=== PATIENT | male | born 1950 | race Caucasian/White ===

== ENCOUNTER 2017-03-01 18:25 | Emergency (ER) | payer MEDICARE, OTHER ==
--- NOTE | 2017-03-01 19:26 | ERNOTE ---
Lower Extremity HPI - Narrative Date of Service: 03/01/17 - General Lower Extremities Pain: knee: right Time Seen by Provider: 03/01/17 18:30 Source: patient, family - patint bumped fajardo on hard object and developed hematoma on fajardo - Immun/Allergies/Home Medications Immunizations: IMMUNIZATION HX Immunizations Up to Date Yes History of Influenza Vaccine No Hx Pneumococcal Vaccination No Allergies/Adverse Reactions: Allergies Allergy/AdvReac Type Severity Reaction Status Date / Time No Known Allergies Allergy Unverified 03/01/17 18:28 Home Medications: HOME MEDICATIONS Aspirin [Aspirin EC] 81 mg PO DAILY 03/01/17 [Last Taken Unknown] Bimatoprost [Lumigan 0.01% Opth Solution] 1 ml OP DAILY 03/01/17 [Last Taken Unknown] Tamsulosin HCl [Flomax] 0.4 mg PO HS 03/01/17 [Last Taken Unknown] - History of Present Illness Occurred: this afternoon Location of Incident: home Method of Injury: Reports: direct blow Reason for Fall: Reports: tripped Loss of Consciousness: Reports: no loss of consciousness Modifying Factors - (Improves): Reports: cold therapy, rest Modifying Factors - (Worsens): Reports: movement Other Injuries: Reports: none Subsequent Symptoms: Reports: sensory loss Review of Systems - Review of Systems Constitutional: Present: See HPI EYE: Present: no symptoms reported ENT: Present: no symptoms reported Respiratory: Present: no symptoms reported Cardiology: Present: no symptoms reported Gastrointestinal/Abdominal: Present: no symptoms reported Genitourinary: Present: no symptoms reported Musculoskeletal: Present: no symptoms reported Skin: Present: no symptoms reported Neurological: Present: no symptoms reported Endocrine: Present: no symptoms reported Hematologic/Lymphatic: Present: no symptoms reported Psych: Present: no symptoms reported All Other Systems: All systems neg except as marked - Patient's Past Medical History Patient History - Medical: Glaucoma Patient History - Cardiac/Respiratory: Hypertension Patient History - Cancer: No Hx of Cancer Patient History - Surgical Procedures: No surgical history Patient History - Other: None - Social History Living Situations: home Abuse History: No History of abuse Psych History: No pertinent hx Smoking Status: Never smoker Have you smoked in the past 12 months: No Do you dip or chew tobacco: No Patient requests Smoking Cessation Consult: No Alcohol Use: none Drug Use: none - Immunizations Immunizations Up to Date: Yes Hx Pneumococcal Vaccination: No History of Influenza Vaccine: No Physical Exam - Physical Exam General Appearance: Present: mild distress Head Exam: Present: normal inspection Eye Exam: Normal inspection: bilateral, PERRL: bilateral, EOMI: bilateral Ears, Nose, Throat: Present: normal ENT inspection Neck: Present: normal inspection, nontender Respiratory: Present: no respiratory distress, normal breath sounds, no accessory muscle use, chest nontender, lungs clear Cardiovascular/Chest: Present: regular rate, rhythm, no murmur, normal peripheral pulses Peripheral Pulses: N=norm/S=strong/W=weak/B=bound/A=absent: Carotid (R): Normal , Carotid (L): Normal, Radial (R): Normal, Radial (L): Normal, Femoral (R): Normal, Femoral (L): Normal, Dorsalis-pedis (R): Normal, Dorsalis-pedis (L): Normal Gastrointestinal/Abdominal: Present: normal bowel sounds, nontender, nondistended, soft, no organomegaly Back Exam: Present: normal inspection, normal range of motion, no CVA tenderness , no vertebral tenderness Extremity Exam: Present: normal inspection, non-tender, normal range of motion, no edema, extremity edema, other - hematoma on anterior right fajardo DTR: N=norm/NB=norm/brisk/A=abs/DD=dull/dimin/HC=hyperactive: Bicep (R): Normal , Bicep (L): Normal, Tricep (R): Normal, Tricep (L): Normal, Knee (R): Normal, Knee (L): Normal Skin Exam: Present: normal color, warm/dry Lymphatic Exam: Present: no adenopathy ED Progress - Vital Signs Vital Signs: Vital Signs 03/01/17 18:25 Temperature 36.7 C Pulse Rate 69 Respiratory 15 Rate Blood Pressure 170/100 O2 Sat by Pulse 98 Oximetry - Progress/Reassessment Chief Complaint: Lower Extremity Pain/ Injury Progress:: Unchanged - Transfer of Care Expected Disposition: Discharge Departure Clinical Impression: Hematoma - Departure Disposition: Home self-care Condition: Fair Instructions: Hematoma, [id number] Referrals: Sara Crook MD [Primary Care Provider] -
[2017-03-01 19:45] VITALS: BP 149/82
== END 2017-03-01 19:35 | disposition home or self-care (01) ==
LOC: ER 18:25
DX: S80.11XA Contusion of right lower leg, initial encounter (principal); W18.00XA Striking against unspecified object with subsequent fall, initial encounter; Y93.9 Activity, unspecified; Y92.009 Unspecified place in unspecified non-institutional (private) residence as the place of occurrence of the external cause; Y99.9 Unspecified external cause status; H40.9 Unspecified glaucoma

== ENCOUNTER 2018-05-02 17:30 | Observation (INO) | payer MEDICARE, OTHER ==
--- NOTE | 2018-05-02 18:02 | ERNOTE ---
Trauma/Assault HPI - Narrative Date of Service: 05/02/18 - General Stated Complaint: fall from ladder Time Seen by Provider: 05/02/18 17:44 Source: patient, family Exam Limitations: no limitations - Immun/Allergies/Home Medications Immunizations: IMMUNIZATION HX Immunizations Up to Date Yes History of Influenza Vaccine No Hx Pneumococcal Vaccination No Allergies/Adverse Reactions: Allergies No Known Allergies Allergy (Verified 05/02/18 17:38) Home Medications: HOME MEDICATIONS Aspirin [Aspirin EC] 81 mg PO DAILY 03/01/17 [Last Taken Unknown] - History of Present Illness Date (Duration): 05/02/18 Time (Timing): 16:30 Narrative: Patient states he has 10 ft ceilings and was up on the ladder changing a light bulb. States when he looked up he got dizzy lost his balance and fall backwards onto his back. Does not remember the fall but his states he did not loose conciousness. Complains of chest pain through to the back and along his shoulders. Denies a headache or pain in the lower extremities. Location Occurred: Reports: home Pain Location: Reports: chest, back - mid Method of Injury: Reports: fall Severity: moderate Modifying Factors - (Improves): Reports: pain medication Modifying Factors - (Worsens): Reports: movement Loss of Consciousness: Reports: no loss of consciousness, other - Does not remember event Associated Symptoms - Trauma: Reports: dizziness, lightheadedness, chest pain, nausea. 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 Denies any acute vision changes. ENT: Present: no symptoms reported Respiratory: Present: no symptoms reported Cardiology: Present: other - Has pain across the upper chest worse with palpation. Does not worsen with deep breathing. Gastrointestinal/Abdominal: Present: nausea. Absent: abdominal pain Genitourinary: Present: no symptoms reported Musculoskeletal: Present: other - Upper chest into shoulders and back. Skin: Present: no symptoms reported Neurological: Present: dizziness/light-headedness. Absent: headache Endocrine: Present: no symptoms reported Hematologic/Lymphatic: Present: no symptoms reported Psych: Present: no symptoms reported Medical History (Last Updated 05/02/18 @ 17:37 by Tammie Ott) No active medical problems Surgical History: Surgical History (Last Updated 05/02/18 @ 17:37 by Tammie Ott) Hx of cataract surgery Family History: Family History (Last Updated 05/02/18 @ 21:16 by Sandy Rocha RN) Other No pertinent past medical history Social History: Preferred Language Romansh Abuse History No History of abuse Psych History No pertinent hx Alcohol Use none Drug Use none No Social History Section defined Physical Exam - Physical Exam General Appearance: Present: wd/wn, alert Head Exam: Present: normal inspection, no evidence of injury, no tenderness w palpation Eye Exam: Normal inspection: bilateral, PERRL: left, EOMI: bilateral, Abnormal pupil: right - right pupil 4+ nonreactive chronic. Ears, Nose, Throat: Present: normal ENT inspection Neck: Present: other - in cervical collar Respiratory: Present: no respiratory distress, normal breath sounds, no accessory muscle use, lungs clear Cardiovascular/Chest: Present: regular rate, rhythm, no murmur, normal peripheral pulses Peripheral Pulses: N=norm/S=strong/W=weak/B=bound/A=absent: Radial (R): Normal, Radial (L): Normal, Dorsalis-pedis (R): Normal, Dorsalis-pedis (L): Normal Gastrointestinal/Abdominal: Present: normal bowel sounds, nontender, nondistended, soft, no organomegaly Back Exam: Present: no CVA tenderness, no vertebral tenderness Extremity Exam: Present: normal inspection, normal range of motion, other - Equal bilateral Neurological Exam: Present: alert, oriented, no motor/sensory deficits, personnel monitor II- XII nml as tested Skin Exam: Present: other - Right heal 1.5cm laceration linear through all tissue layers. Clean. Detailed Trauma Exam Best Eye Response ([place]): (4) open spontaneously Best Verbal Response ([place]): (5) oriented Best Motor Response (Alex): (6) obeys commands [place] Total: 15 General Appearance: Present: alert, moderate distress - C-Spine cleared by: Neg C-spine CT & exam - C-Collar: C-Collar:: Removed - T, L-Spine cleared by: Neg T-spine CT, Neg L-spine CT - Long Board: Back visualized ED Progress - Results and Orders Patient's Lab Results:: I have reviewed the patient's lab results. - Vital Signs Patient's Vital Signs:: I have reviewed the patient's vital signs. Vital Signs: Vital Signs 11/03/18 17:33 Temperature 36.2 C Pulse Rate 68 Respiratory Rate 21 H Blood Pressure 181/93 H O2 Sat by Pulse Oximetry 99 - EKG EKG read: Interp. by me - NSR. - CT/Ultrasound CT/Ultrasound Narrative: CT head, cervical, thoracic, lumbar all negative for acute fractures. CT chest bilateral anterior 2nd rib mildly displaced fractures. No pneumo, hemothorax. Incidental atherosclerosis of left carotid. Liver cyst. Recommend outpatient US. Discussed with patient. - Progress/Reassessment Chief Complaint: Fall Progress:: Re-examined - While in radiology for CT with contrast, IV infiltrated causing dye to be injected into the arm. New IV started and reinjected. Will monitor for complications. Progress Note-Subjective: 05/02/18 2100 Pain is returning and will give oral medication at this time. - Transfer of Care Additional Notes: Discussed patient with Dr. Kerr who would agree patient would be at increased risk for discharge at this time. Will place on observation for proper pain management and cardiac monitoring due to chest pain. No indication at this time of any intrathoracic complication but would be appropriate to monitor based on mechanism of injury. Procedures Right Heel Anesthesia: 1% Lidocaine - 3 ml I & D Prep: betadine prep Wound's Depth/Shape: into subcutaneous, linear Wound Explored: clean Wound Intervention: irrigated w/saline Distal NVT: neuro/vasc intact, no tendon injury Wound Repaired With: sutures Suture Size/Type: 4-0, prolene Number of Sutures: 4 Layer Closure: Simple Wound Dressing: other - open Complications: Pt jesus procedure well Immediate Post Procedure Note: Cleaned with sterile water and betadyne scrub. Lidocain 1% 3ml then with sterile technique applied 4 sutures of 4-0 ethilon. No blood loss. Patient tolerated procedure well. Neurovasculars intact post procedure. Departure Clinical Impression: Ribs, multiple fractures Qualifiers: Encounter type: initial encounter Fracture type: closed Laterality: bilateral Qualified Code(s): S22.43XA - Multiple fractures of ribs, bilateral, initial encounter for closed fracture Laceration of heel without complication Qualifiers: Encounter type: initial encounter Laterality: right Qualified Code(s): S91.311A - Laceration without foreign body, right foot, initial encounter - Departure Disposition: Short Term Hospital Inpatient Condition: Good Critical Care Time - Critical Care Critical Time Spent:: Yes - 52 minutes
[2018-05-02] MEDS ORDERED: MORPHINE SULFATE 2 MG/ML DISP.SYRIN IV ONE (18:15)
[2018-05-02] MEDS ORDERED: ONDANSETRON HCL/PF 2 MG/ML VIAL IV ONE (18:15)
[2018-05-02 18:22] LABS: Hematocrit 41.9 % (42.0-52.0); Hemoglobin 14.7 gm/dL (13.5-18.0); Mean Cell Volume 90.1 fl (78-100); Mean Corpuscular Hemoglobin 31.6 pg (27-31); Mean Corpuscular Hgb Conc 35.1 g/dl (32-36); Mean Platelet Volume 9.7 fl (8-11.3); Neutrophil # 4.7 K/mm3 (1.3-6.0); Neutrophil % 62.8 % (42-75.0); Platelet Count 348 K/mm3 (150-450); Red Blood Count 4.65 M/mm3 (4.7-6.0); Red Cell Distribution Width 12.2 % (11.5-14.0); White Blood Count 7.5 K/mm3 (4.0-10.5)
[2018-05-02 18:43] LABS: ALT 26 U/L (19-67); AST 27 U/L (0-48); Albumin * 4.1 gm/dl (3.4-5.0); Alkaline Phosphatase * 81 U/L (50-170); Anion Gap 13.3 mmol/L (6.8-13.8); Bilirubin, Total 0.3 mg/dL (0.0-1.1); Blood Urea Nitrogen 12 mg/dL (6-23); Ca. Corrected For Albumin 8.4 mg/dL (8.4-10.2); Calcium * 8.8 mg/dL (7.9-10.9); Carbon Dioxide 26.8 mmol/L (24-32.6); Chloride 101 mmol/L (97-106); Glucose * 138 mg/dL (70-110); Potassium 3.1 mmol/L (3.4-4.6); Sodium 138 mmol/L (132-142)
[2018-05-02 18:46] LABS: Troponin I Less than 0.017 ng/mL (0.00-0.10)
[2018-05-02] MEDS ORDERED: MORPHINE SULFATE 2 MG/ML DISP.SYRIN ONE (19:08)
[2018-05-02] MEDS ORDERED: ONDANSETRON HCL/PF 2 MG/ML VIAL ONE (19:08)
[2018-05-02 19:51] LABS: Urine Appearance Clear (CLEAR); Urine Bilirubin Negative (NEGATIVE); Urine Color Yellow
[2018-05-02 19:52] LABS: Urine Bacteria None Seen; Urine Blood 5 /ul (NEGATIVE); Urine Ketone Negative (NEGATIVE); Urine Nitrite Negative (NEGATIVE); Urine Protein Negative (NEGATIVE); Urine RBC 0-5 /hpf (0-5); Urine Urobilinogen Normal (NORMAL); Urine WBC 0-5 /hpf (0-5); Urine pH 7.5 pH (5.0-7.0)
[2018-05-02] MEDS ORDERED: TETANUS AND DIPHTHERIA TOXOID 0.5 ML SYRG IM ONE ×2 (20:19→20:24)
[2018-05-02] MEDS ORDERED: POTASSIUM CHLORIDE 20 MEQ TABLET.SA PO ONE (20:20)
[2018-05-02] MEDS ORDERED: HYDROcodone/ACETAMINOPHEN 1 EACH TABLET PO ONE (20:20)
[2018-05-02] MEDS ORDERED: HYDROcodone/ACETAMINOPHEN 1 EACH TABLET ONE (20:24)
[2018-05-02] MEDS ORDERED: POTASSIUM CHLORIDE 20 MEQ TABLET.SA ONE (20:24)
[2018-05-02] MEDS ORDERED: ACETAMINOPHEN 325 MG TABLET PO PRN (21:48)
[2018-05-02] MEDS ORDERED: IBUPROFEN 400 MG TABLET PO PRN (21:49)
--- NOTE | 2018-05-02 21:56 | HP ---
Chief Complaint - Chief Complaint Date of Service: 05/02/18 Time of Service: 21:41 Chief Complaint: trauma History of Present Illness: Patient with no PMHx fell off a ladder this afternoon. He does not remember the accident, and doesn't know why he fell. He has bilateral second rib fractures, and was having significant pain. No shortness of breath. He had some vomiting after the fall. He did not each much today, and his fluid intake was also decreased. His pain is across his anterior upper chest, particularly when he moves his arms forward. He also had a laceration of his left heel, which received 4 stitches in the ED. During his CT, the contrast extravasated from his right AC, and he has some localized swelling. Medical History (Last Updated 05/02/18 @ 17:37 by Tammie Ott) No active medical problems Surgical History: Surgical History (Last Updated 05/02/18 @ 17:37 by Tammie Ott) Hx of cataract surgery Family History: Family History (Last Updated 05/02/18 @ 21:16 by Sandy Rocha RN) Other No pertinent past medical history Social History: Preferred Language Sami Abuse History No History of abuse Psych History No pertinent hx Alcohol Use none Drug Use none No Social History Section defined Review Of Systems (GEN) - Review of Systems Generalized/Overall Review: Absent: Fever Respiratory: Absent: Shortness of Breath Cardiac: Present: Chest Pain, Syncope. Absent: Edema Abdominal: Present: Vomiting Genitourinary: Absent: Dysuria Skin: Present: Other - he had "age spots" removed this week by Dr. Muñoz Immunizations: IMMUNIZATION HX Immunizations Up to Date Yes History of Influenza Vaccine No Hx Pneumococcal Vaccination No Allergies/Adverse Reactions: Allergies Allergy/AdvReac Type Severity Reaction Status Date / Time No Known Allergies Allergy Verified 05/02/18 17:38 Home Medications: HOME MEDICATIONS Aspirin [Aspirin EC] 81 mg PO DAILY 03/01/17 [Last Taken Unknown] Exam - Exam Vital Signs: Vital Signs - Last Taken Temp 36.2 C 05/02/18 17:33 Pulse 72 05/02/18 19:42 Resp 15 05/02/18 19:42 BP 176/97 H 05/02/18 19:42 Pulse Ox 97 05/02/18 19:42 Constitutional: Present: Alert, Oriented x3, Cooperative, Well developed ENT Exam: Present: dry mucous membranes Neck: Absent: lymphadenopathy (R), lymphadenopathy (L) Respiratory: Present: lungs clear, normal breath sounds, no respiratory distress Cardiovascular/Chest: Present: regular rate, rhythm, chest tender - upper chest tenderness Abdomen: Present: Normal bowel sounds, soft, nontender, nondistended Extremity: Present: other - left heel bandaged. Absent: pedal edema Neurologic: Present: normal mood/affect Appearance: Present: appropriate appearance, appropriate insight Eye contact: Present: cooperative Diagnostic Studies: Abnormal Lab Results 05/02/18 05/02/18 05/02/18 Range/Units 18:06 18:06 19:43 RBC 4.65 L (4.7-6.0) M/mm3 Hct 41.9 L (42.0-52.0) % MCH 31.6 H (27-31) pg Immature Gran % (Auto) 0.70 H (0.001-0.429) % Immature Gran # (Auto) 0.05 H (0.000-0.0310) K/mm3 Basophils % 1.3 H (0.0-1.0) % Potassium 3.1 L (3.4-4.6) mmol/L Random Glucose 138 H (70-110) mg/dL Urine Blood 5 H (NEGATIVE) /ul Laboratory Results WBC 7.5 K/mm3 (4.0-10.5) 05/02/18 18:06 RBC 4.65 M/mm3 (4.7-6.0) L 05/02/18 18:06 Hgb 14.7 gm/dL (13.5-18.0) 05/02/18 18:06 Hct 41.9 % (42.0-52.0) L 05/02/18 18:06 MCV 90.1 fl (78-100) 05/02/18 18:06 MCH 31.6 pg (27-31) H 05/02/18 18:06 MCHC 35.1 g/dl (32-36) 05/02/18 18:06 RDW 12.2 % (11.5-14.0) 05/02/18 18:06 Plt Count 348 K/mm3 (150-450) 05/02/18 18:06 MPV 9.7 fl (8-11.3) 05/02/18 18:06 Immature Gran % (Auto) 0.70 % (0.001-0.429) H 05/02/18 18:06 Immature Gran # (Auto) 0.05 K/mm3 (0.000-0.0310) H 05/02/18 18:06 Neutrophils % 62.8 % (42-75.0) 05/02/18 18:06 Lymphocytes % 24.5 % (20-51) 05/02/18 18:06 Monocytes % 8.4 % (0.0-9) 05/02/18 18:06 Eosinophils % 2.3 % (0.0-3.0) 05/02/18 18:06 Basophils % 1.3 % (0.0-1.0) H 05/02/18 18:06 Nucleated RBC % 0.0 k/mm3 (0-1) 05/02/18 18:06 Neutrophils # 4.7 K/mm3 (1.3-6.0) 05/02/18 18:06 Lymphocytes # 1.84 k/mm3 (1.5-3.5) 05/02/18 18:06 Monocytes # 0.6 k/mm3 (0.0-1.0) 05/02/18 18:06 Eosinophils # 0.2 k/mm3 (0.0-0.7) 05/02/18 18:06 Absolute Basophils 0.1 k/mm3 (0.0-0.1) 05/02/18 18:06 Sodium 138 mmol/L (132-142) 05/02/18 18:06 Plasma Sodium 139 mmol/L (130-142) 05/02/18 18:06 Potassium 3.1 mmol/L (3.4-4.6) L 05/02/18 18:06 Chloride 101 mmol/L (97-106) 05/02/18 18:06 Carbon Dioxide 26.8 mmol/L (24-32.6) 05/02/18 18:06 Anion Gap 13.3 mmol/L (6.8-13.8) 05/02/18 18:06 BUN 12 mg/dL (6-23) 05/02/18 18:06 Creatinine 1.09 mg/dL (0.4-1.4) 05/02/18 18:06 Est GFR (Non-Af Amer) 72 mL/min (60-130) 05/02/18 18:06 BUN/Creatinine Ratio 11.0 (9.0-21.6) 05/02/18 18:06 Random Glucose 138 mg/dL (70-110) H 05/02/18 18:06 Calcium 8.8 mg/dL (7.9-10.9) 05/02/18 18:06 Calcium Adj for Albumin 8.4 mg/dL (8.4-10.2) 05/02/18 18:06 Total Bilirubin 0.3 mg/dL (0.0-1.1) 05/02/18 18:06 AST 27 U/L (0-48) 05/02/18 18:06 ALT 26 U/L (19-67) 05/02/18 18:06 Alkaline Phosphatase 81 U/L (50-170) 05/02/18 18:06 Troponin I Less than 0.017 ng/mL (0.00-0.10) 05/02/18 18:06 Total Protein 8.0 gm/dL (6.2-8.2) 05/02/18 18:06 Albumin 4.1 gm/dl (3.4-5.0) 05/02/18 18:06 Urine Color Yellow 05/02/18 19:43 Urine Appearance Clear (CLEAR) 05/02/18 19:43 Urine pH 7.5 pH (5.0-7.0) 05/02/18 19:43 Ur Specific [place] 1.010 SP.GR. (1.005-1.030) 05/02/18 19:43 Urine Protein Negative mg/dL (NEGATIVE) 05/02/18 19:43 Urine Glucose (UA) Negative mg/dL (NEGATIVE) 05/02/18 19:43 Urine Ketones Negative mg/dL (NEGATIVE) 05/02/18 19:43 Urine Blood 5 /ul (NEGATIVE) H 05/02/18 19:43 Urine Nitrate Negative (NEGATIVE) 05/02/18 19:43 Urine Bilirubin Negative mg/dl (NEGATIVE) 05/02/18 19:43 Urine Urobilinogen Normal EU/dl (NORMAL) 05/02/18 19:43 Ur Leukocyte Esterase Negative /ul (NEGATIVE) 05/02/18 19:43 Urine RBC 0-5 /hpf (0-5) 05/02/18 19:43 Urine WBC 0-5 /hpf (0-5) 05/02/18 19:43 Ur Epithelial Cells 0-5 /hpf (0-5) 05/02/18 19:43 Urine Bacteria None seen (NONE) 05/02/18 19:43 Urine Culture Comments No culture indicated 05/02/18 19:43 Assessment/Plan - Assessment/Plan (1) Ribs, multiple fractures Assessment: Patient's pain has improved after pain medication. He is concerned about the side effects of narcotics, and would like to avoid them if possible. Will use tylenol and ibuprofen first, and if needed, prn norco is ordered. Discussed with him the importance of deep breaths over the next few days to avoid developing pneumonia. Problem: Acute Qualifiers: Encounter type: initial encounter Fracture type: closed Laterality: bilateral Qualified Code(s): S22.43XA - Multiple fractures of ribs, bilateral, initial encounter for closed fracture (2) Laceration of heel without complication Problem: Acute Qualifiers: Encounter type: initial encounter Laterality: right Qualified Code(s): S91.311A - Laceration without foreign body, right foot, initial encounter (3) Syncope Assessment: Unknown source. No significant abnormalities on exam. Would recommend outpatient workup after discharge. Problem: Acute (4) Extravasation injury Assessment: CT contrast infiltrated into his right upper arm. Would recommend cold compresses overnight for 20 minutes at a time. Problem: Acute
[2018-05-03] MEDS: HYDROcodone/ACETAMINOPHEN 1 EACH TABLET PO PRN ×2 (04:18→08:51)
[2018-05-03] MEDS ORDERED: POTASSIUM CHLORIDE 20 MEQ TABLET.SA PO SCH (09:00)
--- NOTE | 2018-05-03 09:57 | DS ---
(1) Ribs, multiple fractures Problem: Acute Qualifiers: Encounter type: initial encounter Fracture type: closed Laterality: bilateral Qualified Code(s): S22.43XA - Multiple fractures of ribs, bilateral, initial encounter for closed fracture (2) Laceration of heel without complication Problem: Acute Qualifiers: Encounter type: initial encounter Laterality: right Qualified Code(s): S91.311A - Laceration without foreign body, right foot, initial encounter (3) Syncope Problem: Acute (4) Extravasation injury Problem: Acute (5) Hypokalemia Problem: Acute Description of Stay: Patient brought to the ED after passing out while on a ladder and falling, sustaining bilateral nondisplaced rib 2 fractures. He does not have medical diagnoses at baseline, and only takes an aspirin. He doesn't remember the incident and doesn't know why he passed out. Head CT was negative, and BP was not decreased. Normal blood glucose. He had a laceration on his left heel, and 4 sutures were placed in the ED. He was watched overnight to ensure the syncopal episodes did not recur. His pain was controlled with norco. He would prefer to use tylenol and ibuprofen for pain, but it was a bit more intense. He is concerned about the side effects of narcotics, and will only use them if absolutely necessary. He also had significant bilateral upper arm weakness. He was able to ambulate to the door of his hospital room. Would recommend PT in a few weeks after some fracture healing has occurred. His potassium was low at 3.1, and he was given a dose of potassium. Unfortunately, the contrast extravasated during his CT, and he had right upper extremity swelling and soreness. Procedures Performed: none Results and Findings: Lab Pending Results 05/02/18 18:06: WBC 7.5, RBC 4.65 L, Hgb 14.7, Hct 41.9 L, MCV 90.1, MCH 31.6 H, MCHC 35.1, RDW 12.2, Plt Count 348, MPV 9.7, Immature Gran % (Auto) 0.70 H, Immature Gran # (Auto) 0.05 H, Neutrophils % 62.8, Lymphocytes % 24.5, Monocytes % 8.4, Eosinophils % 2.3, Basophils % 1.3 H, Nucleated RBC % 0.0, Neutrophils # 4.7, Lymphocytes # 1.84, Monocytes # 0.6, Eosinophils # 0.2, Absolute Basophils 0.1 05/02/18 18:06: Sodium 138, Plasma Sodium 139, Potassium 3.1 L, Chloride 101, Carbon Dioxide 26.8, Anion Gap 13.3, BUN 12, Creatinine 1.09, Est GFR (Non-Af Amer) 72, BUN/Creatinine Ratio 11.0, Random Glucose 138 H, Calcium 8.8, Calcium Adj for Albumin 8.4, Total Bilirubin 0.3, AST 27, ALT 26, Alkaline Phosphatase 81, Troponin I Less than 0.017, Total Protein 8.0, Albumin 4.1 05/02/18 19:43: Urine Color Yellow, Urine Appearance Clear, Urine pH 7.5, Ur Specific [place] 1.010, Urine Protein Negative, Urine Glucose (UA) Negative, Urine Ketones Negative, Urine Blood 5 H, Urine Nitrate Negative, Urine Bilirubin Negative, Urine Urobilinogen Normal, Ur Leukocyte Esterase Negative, Urine RBC 0-5, Urine WBC 0-5, Ur Epithelial Cells 0-5, Urine Bacteria None seen, Urine Culture Comments No culture indicated Discharge Location: Home Disposition: Home self-care Condition: Good Discharge Activity: Activity as tolerated Discharge Diet: General/regular food Referrals: Sara Crook MD [Primary Care Provider] - Prescriptions (Any new or edited meds): HYDROcodone/ACETAMINOPHEN [[place] 5-325] 1 each PO Q6H PRN #15 tablet PRN Reason: Pain Potassium Chloride [K-Dur] 20 meq PO DAILY #30 tablet.sa Complete Home Medications List: Complete Home Medication List: Aspirin [Aspirin EC] 81 mg PO DAILY 03/01/17 HYDROcodone/ACETAMINOPHEN [[place] 5-325] 1 each PO Q6H PRN #15 tablet 05/03/18 Potassium Chloride [K-Dur] 20 meq PO DAILY #30 tablet.sa 05/03/18 Amb Orders for Discharge: PT Evaluation and Treatment* Time Frame: 2 Weeks, Facility: [facility], Location: Rehabilitation Services US Carotid Duplex Comp Bilat * Time Frame: 2 Weeks, Location: Radiology
[2018-05-03 12:55] VITALS: BP 151/72
== END 2018-05-03 11:00 | disposition home or self-care (01) ==
LOC: ER 17:30 → MS 17:30
PROVIDERS: ADMIT Family Medicine; ATTEND Family Medicine
DX: R55 Syncope and collapse; Y93.E9 Activity, other interior property and clothing maintenance; S22.43XA Multiple fractures of ribs, bilateral, initial encounter for closed fracture; W11.XXXA Fall on and from ladder, initial encounter; T80.89XA Other complications following infusion, transfusion and therapeutic injection, initial encounter; S91.311A Laceration without foreign body, right foot, initial encounter; Y92.019 Unspecified place in single-family (private) house as the place of occurrence of the external cause; Y92.238 Other place in hospital as the place of occurrence of the external cause; Y84.8 Other medical procedures as the cause of abnormal reaction of the patient, or of later complication, without mention of misadventure at the time of the procedure
CPT/HCPCS: 12001; 36415; 70450; 71260; 72125; 72128; 72131; 80053; 81001; 84484; 85025; 90471; 90715; 93005; 96374; 96375; 99285; 99291; G0378; J2405